=== PATIENT | male | born 1965 | race Caucasian/White ===

== ENCOUNTER → 2021-03-16 | Day surgery (SDC) | payer OTHER ==
[~2021-03-16] MED LIST: DICLOFENAC SODI25 MG PO; NORCO 5-325 TA1 EACH PO; SINGULAIR10 MG PO; [UNRECOGNIZED DRUG - REMARK] PO
[2021-03-16 10:54] LABS: HCT 45.5 % (42.0-52.0); HGB 15.9 g/dl (13.2-18.0); MCH 32.4 pg (25.0-31.0); MCHC 34.9 g/dL (32.0-36.0); MCV 92.7 fL (78.0-100.0); RBC 4.91 M/uL (4.70-6.00); RDW 11.9 % (11.5-14.0); WBC 5.6 K/uL (4.0-10.5)
[2021-03-16 11:06] LABS: BUN/CREAT RATIO (CALC) 16.4 RATIO; CREATININE 0.73 mg/dL (0.67-1.17); POTASSIUM 4.3 mmol/L (3.5-5.1)
== END | disposition home or self-care (01) ==
LOC: FAS 08:57
PROVIDERS: Legal Medicine
DX: G56.21 Lesion of ulnar nerve, right upper limb (principal); J44.9 Chronic obstructive pulmonary disease, unspecified; K21.9 Gastro-esophageal reflux disease without esophagitis; Z20.822 Contact with and (suspected) exposure to COVID-19; Z98.890 Other specified postprocedural states; Z86.79 Personal history of other diseases of the circulatory system
CPT/HCPCS: 36415; 80048; 93005; J0690; J1100; J1885; J2250; J2405; J2704; J2795; J3010; J7120